=== PATIENT | female | born 1985 | race Caucasian/White ===

== ENCOUNTER → 2016-04-10 | Outpatient (CLI) | payer OTHER ==
[~2016-04-10] MED LIST: IBUPROFEN800 MG PO; TRINESSA TABLE1 EACH PO
--- NOTE | ~2016-04-10 | EKG ---
PATIENT: CARLEY ARNOLD UNIT #: [id number] Ventricular Rate: 65 BPM Atrial Rate: 65 BPM P-R Interval: 154 ms QRS Duration: 68 ms Q-T Interval: 398 ms QTC Calculation(Bezet): 413 ms P Faison: 24 degrees Calculated R Faison: 46 degrees Calculated T Faison: 35 degrees Diagnosis Line: Sinus rhythm with marked sinus arrhythmia Diagnosis Line: Otherwise normal ECG Diagnosis Line: No previous ECGs available Diagnosis Line: Confirmed by MILO BOUCHER MD ([id number]) on 04/11/2016 Diagnosis Line: 5:57:13 PM INTERPRETING MD: CITLALY MAY
--- NOTE | ~2016-04-10 | CR63 ---
[facility] A Service of [facility] & [facility] RADIOLOGY TEXT RESULTS PATIENT: CARLEY ARNOLD LOCATION: [facility] : 87 UNIT #: [id number] AGE: [address]: Panfilo Loya MD SEX: F ORDER DR: [id number] [facility] [address] [place], [place] [address] [id number] O MR#: [id number] Acc #: [id number] NAME: CARLEY ARNOLD : 1985 SEX: F STUDY DATE/TIME: 04/10/2016 9:07 UNIT: [facility] ROOM: STUDY DESCRIPTION: CR Chest 2 View Attending Physician: Panfilo Loya M.D. Referring Physician: Panfilo Loya M.D. Ordering Physician: Panfilo Loya M.D. Primary Care Physician: Pedor Hawkins M.D. MEDICAL IMAGING REPORT This report is preliminary unless electronic signature is present EXAM Chest - PA and lateral, 04/10/2016 HISTORY Preop laparoscopic gastric banding. Smoking history for 10 years. FINDINGS PA and lateral examination of the chest upright shows a good expansion of the parenchyma with a normal distribution of the pulmonary vascularity. There is no indication of congestion, effusion, infiltrate, tumor, or nodular density. The pleural reflections and diaphragmatic contours are normal. The cardiac silhouette and mediastinal anatomy is within normal limits. IMPRESSION Normal chest. Dictated by... Dutch Mukherjee M.D. THIS IS AN ELECTRONICALLY VERIFIED REPORT Dutch Mukherjee M.D. at 04/10/2016 4:58 PM CLEVE/bryanna TD: 04/10/2016 13:23 JOB #: [id number] MEDICAL IMAGING REPORT COPY
--- NOTE | ~2016-04-10 | CR97 ---
[facility] A Service of [facility] RADIOLOGY TEXT RESULTS PATIENT: CARLEY ARNOLD LOCATION: [facility] : 87 UNIT #: [id number] AGE: [address]: Panfilo Loya MD SEX: F ORDER DR: [id number] [facility] [address] [place], [place] [address] [id number] O MR#: [id number] Acc #: [id number] NAME: CARLEY ARNOLD : 1985 SEX: F STUDY DATE/TIME: 04/10/2016 12:03 UNIT: [facility] ROOM: STUDY DESCRIPTION: CR Esophagram Attending Physician: Panfilo Loya M.D. Referring Physician: Panfilo Loya M.D. Ordering Physician: Panfilo Loya M.D. Primary Care Physician: Pedro Hawkins M.D. MEDICAL IMAGING REPORT This report is preliminary unless electronic signature is present EXAM Single contrast barium esophagram. INDICATION Preoperative examination prior to laparoscopic gastric banding procedure. TECHNIQUE Patient was administered thin barium and multiple fluoroscopic images were obtained both upright FLORENCE and prone RYAN positions. FINDINGS The patient's thoracic esophagus is of normal caliber. Esophageal motility appeared to be within normal limits. There is no evidence of stricture or mass lesion. Patient was noted to have a small hiatal hernia. No reflux was seen. Total fluoroscopy time was 0.2 minutes. A total of 16 fluoroscopic images were obtained. IMPRESSION Small sliding hiatal hernia otherwise normal examination. Dictated by... Florida Velez M.D. THIS IS AN ELECTRONICALLY VERIFIED REPORT Florida Velez M.D. at 04/14/2016 9:16 AM AFF/gz TD: 04/14/2016 08:05 JOB #: [id number] MEDICAL IMAGING REPORT COPY
[2016-04-10 10:36] LABS: HEMATOCRIT 42.5 % (35.0-45.0); HEMOGLOBIN 14.3 gm/dL (12.0-16.0); MEAN CELL VOLUME 89.5 FL (83-96); MEAN CORPUSCULAR HEMOGLOBIN 30.2 PG (28-34); MEAN CORPUSCULAR HGB CONC 33.8 g/dL (30-36); MEAN PLATELET VOLUME 9.6 FL (6.5-11.5); RED BLOOD COUNT 4.75 X10e (3.90-5.30); RED CELL DISTRIBUTION WIDTH 12.2 % (11.0-15.5); WHITE BLOOD COUNT 7.9 X10e3 (4.0-10.5)
[2016-04-10 12:26] LABS: CHOLESTEROL 206 mg/dL (0-200); HDL CHOLESTEROL 33 mg/dL (35-95); LDL/HDL RATIO 4 RATIO (0-4); TRIGLYCERIDES 141 mg/dL (10-160)
[2016-04-10 12:35] LABS: LDL CHOLESTEROL 145 mg/dL (-130)
[2016-04-10 12:50] LABS: ALBUMIN SERUM 3.8 g/dL (3.5-5.0); ALKALINE PHOSPHATASE 70 U/L (32-92); ALT (SGPT) 18 U/L (10-40); AST (SGOT) 15 U/L (10-42); BILIRUBIN,TOTAL 0.5 mg/dL (0.2-2.0); BLOOD UREA NITROGEN 9 mg/dL (9-23); CALCIUM SERUM 9.2 mg/dL (8.4-10.2); CARBON DIOXIDE 25 mmol/L (22-31); CHLORIDE 105 mmol/L (100-111); CREATININE SERUM 0.9 mg/dL (0.6-1.4); GLOM FILT RATE Estimated ABOVE60 mL/min (>60); GLUCOSE FASTING 83 mg/dL (70-110); POTASSIUM 4.2 mmol/L (3.5-5.1); PROTEIN TOTAL SERUM 6.6 g/dL (6.0-8.3); SODIUM 139 mmol/L (135-145)
== END | disposition home or self-care (01) ==
LOC: CRAD 08:02
PROVIDERS: Surgery
DX: Z01.818 Encounter for other preprocedural examination (principal)
CPT/HCPCS: 36415; 71020; 74220; 80053; 80061; 84443; 85027; 93005

== ENCOUNTER → 2016-04-22 | Day surgery (SDC) | payer OTHER ==
--- NOTE | ~2016-04-22 | OR ---
Unit #: [id number] #: [id number] Patient: CARLEY ARNOLD [id number] [address] [address] [id number] O MR#: [id number] NAME: CARLEY ARNOLD ROOM: Date of Procedure: 04/22/2016 Admission Date: 04/22/2016 Surgeon: Panfilo Loya M.D. : 1985 Attending Physician: Panfilo Loya M.D. Primary Care Physician: Pedro Hawkins M.D. OPERATIVE REPORT PREOPERATIVE DIAGNOSIS Chronic morbid obesity, BMI 38.5. POSTOPERATIVE DIAGNOSES 1. Chronic morbid obesity, BMI 38.5. 2. Paraesophageal hiatal hernia. PROCEDURE PERFORMED 1. Laparoscopic adjustable gastric band. 2. Laparoscopic paraesophageal hiatal hernia repair. ASSISTANT Frederic Edgar M.D. ANESTHESIA General endotracheal anesthesia. ESTIMATED BLOOD LOSS Minimal. IV FLUIDS 800 crystalloid. COMPLICATIONS None. INDICATIONS FOR PROCEDURE The patient is a 30-year-old with chronic morbid obesity. DESCRIPTION OF PROCEDURE The patient was taken to the operating room and placed in supine position. General anesthesia was induced. The abdomen was prepped and draped. A 3-cm incision was then made left of the midline. A 10-mm Visiport was then placed intraabdominal under direct vision. The abdomen was insufflated to 15 mmHg with CO2. The patient was then placed in a steep reversed Trendelenburg. General inspection of the abdomen revealed what appeared to be a paraesophageal hernia. This was identified with a defect at the diaphragm using anterior palpation with the instrument. We then made a small incision in the subxiphoid region. A Naeem liver retractor was then placed intraabdominal and used to retract the left lobe of the liver upward to further expose the paraesophageal hernia and GE junction. I then placed a 5-mm port in the right upper quadrant, a 10-mm Unit #: [id number] #: [id number] Patient: CARLEY ARNOLD port in the left upper quadrant, and another 5-mm port in the left lower quadrant. The stomach was retracted medial and downward. Upon retracting the stomach, we took down the paraesophageal ligament, exposing the right and left karrie at the paraesophageal hernia. Any hernia sac was reduced. We then repaired the paraesophageal hernia using interrupted #0 Ethibond sutures in a auptyh-mc-hkbeg type fashion. This formed a snug repair to the anterior esophagus. We then retracted the stomach medially and further exposed the angle of His using Bovie electrocautery. The stomach was then retracted laterally. We then took down the hepatogastric ligament with Bovie electrocautery. This exposed the right karrie. Using blunt dissection, I created a retrogastric tunnel from this point to the angle of His. The band was then placed intraabdominal through the 10-mm port site. This was then brought through the retrogastric tunnel in a pars flaccida technique. The band was then closed anteriorly to form a 20-mL to 25-mL anterior gastric pouch. The fundus was then secured to the anterior pouch to prevent movement around the stomach using two interrupted #0 Ethibond sutures. A third suture was then used as a gathering stitch from the lesser curve to the anterior stomach, gathering and imbricating the remaining fundus of the stomach. The tubing was then brought out through the midline 10-mm port site. All ports and the Naeem liver retractor were removed under direct vision with no evidence of abdominal hemorrhage. A polypropylene mesh was then secured to the posterior face of the laparoscopic band port. This was secured using #0 Ethibond suture. This was then cut to shape. The port was then connected to the tubing and placed into a subcutaneous pocket just anterior to the rectus sheath. Its position was then confirmed. All tubing was then placed intraabdominal. The wounds were then closed with interrupted 4-0 Vicryl. The patient tolerated the procedure well and was sent to the recovery room in good condition. Dictated by... Orin Camejo/milly TD: 04/23/2016 02:36 JOB #: [id number] OPERATIVE REPORT X Panfilo Loya MD X PROCEDURE OPERATIVE NOTE
--- NOTE | ~2016-04-22 | CR7 ---
[facility] A Service of [facility] & [facility] RADIOLOGY TEXT RESULTS PATIENT: CARLEY ARNOLD LOCATION: [facility] : 87 UNIT #: [id number] AGE: [address]: Panfilo Loya MD SEX: F ORDER DR: [id number] [facility] [address] [place], [place] [address] [id number] O MR#: [id number] Acc #: [id number] NAME: CARLEY ARNOLD : 1985 SEX: F STUDY DATE/TIME: 04/22/2016 UNIT: [facility] ROOM: STUDY DESCRIPTION: CR Abdomen Single AP View Attending Physician: Panfilo Loya M.D. Ordering Physician: Panfilo Loya M.D. Primary Care Physician: Pedro Hawkins M.D. MEDICAL IMAGING REPORT This report is preliminary unless electronic signature is present EXAM Abdomen, 1 view, 04/22/2016, 0855 hours. HISTORY Morbid obesity, postop Lap-Band placement today. Abdominal pain today. COMPARISON STUDIES Preop esophagram, 04/10/2016. FINDINGS Single supine view of the abdomen is performed, which I believe is a supine film. The patient is postop Lap-Band placement. The patient is rotated on this film. The band is located at the T10-T11 level oriented at 45 degrees from vertical. Radiopaque tubing courses inferiorly and leftward with port projecting to the left of the L4 transverse process. Bowel gas pattern is unremarkable. There is linear atelectasis at the left lung base. IMPRESSION 1. Limited film demonstrating Lap-Band placement at the T10-T11 level oriented at 45 degrees from vertical. Radiopaque tubing courses inferiorly to a port projecting to the left of L4. Bowel gas pattern is unremarkable. 2. There is linear atelectasis at the left lung base. Dictated by... Shellie Flores M.D. THIS IS AN ELECTRONICALLY VERIFIED REPORT Shellie Flores M.D. at 04/22/2016 2:31 PM LEONARDO/milad [facility] A Service of [facility] & [facility] RADIOLOGY TEXT RESULTS PATIENT: CARLEY ARNOLD [id number] [birth year] UNIT #: [id number] AGE: [address]: Panfilo Loya MD SEX: F ORDER DR: TD: 04/22/2016 14:14 JOB #: [id number] MEDICAL IMAGING REPORT COPY
== END | disposition home or self-care (01) ==
LOC: CSUR 06:08
DX: E66.01 Morbid (severe) obesity due to excess calories (principal); K44.9 Diaphragmatic hernia without obstruction or gangrene; F41.9 Anxiety disorder, unspecified; F32.9 Major depressive disorder, single episode, unspecified; G43.909 Migraine, unspecified, not intractable, without status migrainosus; E78.5 Hyperlipidemia, unspecified; F17.210 Nicotine dependence, cigarettes, uncomplicated; Z68.38 Body mass index [BMI] 38.0-38.9, adult; Z87.440 Personal history of urinary (tract) infections; Z87.19 Personal history of other diseases of the digestive system; Z88.0 Allergy status to penicillin; Z88.8 Allergy status to other drugs, medicaments and biological substances; Z83.2 Family history of diseases of the blood and blood-forming organs and certain disorders involving the immune mechanism; Z81.8 Family history of other mental and behavioral disorders; Z81.1 Family history of alcohol abuse and dependence; Z82.49 Family history of ischemic heart disease and other diseases of the circulatory system; Z83.3 Family history of diabetes mellitus
CPT/HCPCS: 74000; 84703; C1781; J0330; J1650; J1885; J2250; J2405; J2710; J3010; J3370